=== PATIENT | female | born 1950 | race Hispanic/Latino ===

== ENCOUNTER 2017-01-31 09:08 | Outpatient (CLI) | payer BC ==
--- NOTE | 2017-01-31 10:32 | Mammography Report ---
Screening mammogram: Routine views compared to her prior exam in May 2015. There is a stable circumscribed nodule in the anterior left breast. The fibroglandular pattern is somewhat patchy and symmetric in distribution. Most of the breast is fatty replaced. No interval change is identified. CAD used. Impression: Stable breast pattern. Recommendation: Annual mammogram followup. BI-RADS CATEGORY: 2 = Benign ACR BI-RADS MAMMOGRAPHIC CODES: 0 = Needs additional imaging evaluation; 1 = Negative; 2 = Benign; 3 = Probably benign; 4 = Suspicious; 5 = Malignant; 6 = Known biopsy-proven malignancy COMMENT: 1. Dense breast tissue, i.e., adenosis, fibrocystic changes, etc., may obscure an underlying neoplasm. 2. Approximately 10% of cancers are not detected with mammography. 3. A negative mammography report should not delay biopsy if a clinically suspicious mass is present. The
== END 2017-01-31 09:09 | disposition home or self-care (01) ==
LOC: SPVWC 09:08
PROVIDERS: ATTEND Family Medicine
DX: Z12.31 Encounter for screening mammogram for malignant neoplasm of breast (principal)
CPT/HCPCS: 77067; G0202

== ENCOUNTER 2019-08-28 09:42 | Outpatient (CLI) | payer MEDICARE, OTHER ==
--- NOTE | 2019-08-28 14:07 | Mammography Report ---
DIGITAL SCREENING MAMMOGRAM WITH CAD, 08/28/2019 INDICATION: Routine screening mammography. TECHNIQUE: Digital bilateral 2D mammography was obtained in the craniocaudal and mediolateral obliq ue projections. This examination was interpreted with the benefit of Computer-Aided Detection analysi s. COMPARISON: 05/08/2018 and 01/31/2017 FINDINGS: Breast Density: The breasts are heterogeneously dense, which may obscure small masses. A partially circumscribed right upper focal asymmetry at 12:00 requires additional imaging. No sade ectural distortion or suspicious calcifications of the right breast. There is no evidence of dominant mass, suspicious calcifications or architectural distortion in the left breast. IMPRESSION: Right focal asymmetry requiring additional imaging. Recommend recall for right spot magni fication views and right breast ultrasound if needed. Follow up recommendation: Special View: Mag Category 0: Incomplete. Needs additional imaging evaluation and/or prior mammograms for comparison. A "normal" or negative report should not discourage follow up or biopsy of a clinically significant f inding. A written summary of these findings will be mailed to the patient. The patient will be entered into a mammography reporting system which will generate a reminder letter for the patient's next appointmen t at the appropriate interval. The [employer] recommends yearly mammograms starting at age 40 and continuing as l yaquelin as a woman is in good health. Breast MRI is recommended for women with an approximate 20-25% or greater lifetime risk of breast cancer, including women with a strong family history of breast or ova ovi cancer or who have been treated for Hodgkin's disease. Signer Name: Socrates Modi MD Signed: 08/28/2019 2:03 PM Workstation Name: [id number]
== END 2019-08-28 09:43 | disposition home or self-care (01) ==
LOC: SPVWC 09:42
PROVIDERS: ATTEND Family Medicine
DX: Z12.31 Encounter for screening mammogram for malignant neoplasm of breast (principal)
CPT/HCPCS: 77067

== ENCOUNTER 2021-01-13 14:56 | Outpatient (CLI) | payer MEDICARE ==
--- NOTE | 2021-01-13 15:33 | Mammography Report ---
DIGITAL SCREENING MAMMOGRAM WITH CAD, 01/13/2021 CLINICAL INFORMATION / INDICATION: Routine screening mammography. SCREENING MAMMO Z12.31 TECHNIQUE: Digital bilateral 2D mammography was obtained in the craniocaudal and mediolateral obliqu e projections. This examination was interpreted with the benefit of Computer-Aided Detection analysis . COMPARISON: 05/12/2015 through 01/16/2020. FINDINGS: Breast Density: The breasts are heterogeneously dense, which may obscure small masses. No dominant mass, suspicious calcifications, or architectural distortion in either breast. Small benign-appearing right breast nodule has not changed significantly. No new abnormality is seen. IMPRESSION: No mammographic evidence of malignancy. Follow up recommendation: Routine yearly BI-RADS Category 2: Benign. A "normal" or negative report should not discourage follow up or biopsy of a clinically significant f inding. A written summary of these findings will be mailed to the patient. The patient will be entered into a mammography reporting system which will generate a reminder letter for the patient's next appointmen t at the appropriate interval. The [employer] recommends yearly mammograms starting at age 40 and continuing as l yaquelin as a woman is in good health. Breast MRI is recommended for women with an approximate 20-25% or greater lifetime risk of breast cancer, including women with a strong family history of breast or ova ovi cancer or who have been treated for Hodgkin's disease. Signer Name: Cristiano Croft MD Signed: 01/13/2021 3:28 PM Workstation Name: [id number]
== END 2021-01-13 14:57 | disposition home or self-care (01) ==
LOC: SPVWC 14:56
PROVIDERS: ATTEND Family Medicine
DX: Z12.31 Encounter for screening mammogram for malignant neoplasm of breast (principal); N64.89 Other specified disorders of breast
CPT/HCPCS: 77067